=== PATIENT | female | born 1970 | race Caucasian/White ===

== ENCOUNTER 2024-01-01 09:48 | Outpatient (RCR) | payer BC, SELFPAY | END 2024-04-30 23:59 | disposition home or self-care (01) | PROVIDERS: PCP Physician Assistant Medical; Visit Provider Physician Assistant Medical | DX: N81.10 Cystocele, unspecified (principal); R27.8 Other lack of coordination; Z51.89 Encounter for other specified aftercare | CPT/HCPCS: 97162 ==